=== PATIENT | female | born 1965 | race Caucasian/White ===

== ENCOUNTER 2019-05-16 06:06 | Day surgery (SDC) | payer MEDICAID ==
[~2019-05-16] VITALS: Ht 157.5 cm; Wt 58.5 kg
[2019-05-16] MEDS ORDERED: BUPIVACAINE-MPF/EPI 0.25% 30 ML VIAL INJ ONE (07:45)
[2019-05-16] MEDS ORDERED: LIDOCAINE/EPI MPF 1%1:200000 30 ML VIAL INJ ONE (07:45)
[2019-05-16] MEDS ORDERED: ONDANSETRON 4 MG/2 ML VIAL IV PRN (08:15)
[2019-05-16] MEDS ORDERED: HYDROmorphone 1 MG/ML AMP IVP PRN (08:15)
[2019-05-16] MEDS ORDERED: MORPHINE SULFATE 4 MG/ML SYR IV PRN (08:15)
[2019-05-16] MEDS ORDERED: HYDROcodone/APAP 5/325 MG 1 TAB TAB PO PRN (08:15)
[2019-05-16] MEDS ORDERED: MORPHINE SULFATE 2 MG/ML SYR IVP PRN (08:15)
== END 2019-05-16 08:30 | disposition home or self-care (01) ==
LOC: MDS 06:06 → MMU 06:07 → MDS 08:30
PROVIDERS: ATTEND Surgery
DX: M96.843 Postprocedural seroma of a musculoskeletal structure following other procedure (principal); Z85.3 Personal history of malignant neoplasm of breast; Y83.8 Other surgical procedures as the cause of abnormal reaction of the patient, or of later complication, without mention of misadventure at the time of the procedure
CPT/HCPCS: 10140; 81025; J2001; J3490; J7120; J0690; J7060